=== PATIENT | female | born 1960 | race Caucasian/White ===

== ENCOUNTER → 2019-10-31 | Emergency (ER) | payer BC, OTHER ==
[~2019-10-31] VITALS: Ht 162.6 cm; Wt 90.3 kg
[~2019-10-31] MED LIST: KETOROLAC TROMETH 15 mg/ml 1ML VL IV ONE; LORazepam 2MG/ML-1ML VIAL IV ONE; MORPHINE SULF INJ 2 MG/ML SYRINGE 1ML IV ONE; ONDANSETRON HCL 4 MG/2 ML VIAL IV ONE; SODIUM CHLORIDE 0.9% 1,000 ML IV ONE; methylPREDNISolone SOD SUCC 125 MG/2 ML VL IV ONE
[2019-10-31 22:37] VITALS: BP 80/55
== END | disposition home or self-care (01) ==
LOC: ER 17:50
DX: S42.211A Unspecified displaced fracture of surgical neck of right humerus, initial encounter for closed fracture (principal); E78.5 Hyperlipidemia, unspecified; Z88.2 Allergy status to sulfonamides; W01.0XXA Fall on same level from slipping, tripping and stumbling without subsequent striking against object, initial encounter; Y93.89 Activity, other specified; Y92.89 Other specified places as the place of occurrence of the external cause; Y99.8 Other external cause status
CPT/HCPCS: 29105; 73030; 96374; 96375; 99284; J1885; J2060; J2270; J2405; J2930; J7030